=== PATIENT | female | born 1945 ===

== ENCOUNTER → 2017-11-27 | Outpatient (CLI) | payer OTHER | LOC: FIMAGING 14:20 | PROVIDERS: ATTEND Internal Medicine Hematology & Oncology | DX: R22.31 Localized swelling, mass and lump, right upper limb (principal) ==

== ENCOUNTER → 2017-11-30 | Outpatient (CLI) | payer OTHER ==
[~2017-11-30] MED LIST: LIDOCAINE 1% 300 MG/30 ML SDV ONE
== END ==
LOC: FIMAGING 08:08
PROVIDERS: ATTEND Internal Medicine Hematology & Oncology
PROC: 0KB73ZX Excision of Right Upper Arm Muscle, Percutaneous Approach, Diagnostic (ICD-10-PCS; principal; 2017-11-30)
DX: C47.9 Malignant neoplasm of peripheral nerves and autonomic nervous system, unspecified (principal); Z88.0 Allergy status to penicillin